=== PATIENT | male | born 1990 | race Caucasian/White ===

== ENCOUNTER 2018-04-19 18:07 | Emergency (ER) | payer OTHER ==
--- NOTE | 2018-04-19 19:03 | ER ---
Nurse's Notes [facility] Emergency Department Name: Deep Tang Age: 27 yrs Sex: Male : 1990 Arrival Date: 04/19/2018 Time: 18:11 Bed 14 Private MD: Diagnosis: Allergic contact dermatitis Presentation: 04/19 18:12 Presenting complaint: Patient states: "I got into some poison chaz or oak, it's all over aa5 my arms and now is in my right eye". Transition of care: patient was not received from another setting of care. Onset of symptoms was April 19, 2018. Risk Assessment: Do you want to hurt yourself or someone else? Patient reports no desire to harm self or others. Initial Sepsis Screen: Does the patient meet any 2 criteria? No. Patient's initial sepsis screen is negative. Does the patient have a suspected source of infection? No. Patient's initial sepsis screen is negative. Care prior to arrival: None. 18:12 Method Of Arrival: Ambulatory aa5 18:12 Acuity: JON 4 aa5 Historical: - Allergies: 18:14 Latex, Natural Rubber; aa5 18:14 Demerol; aa5 18:14 Codeine; aa5 18:14 Ceclor; aa5 18:14 fentanyl; aa5 18:14 Versed; aa5 - PMHx: 18:14 Hypertension; aa5 - PSHx: 18:14 Hernia repair; testicle repair; aa5 - Immunization history:: Adult Immunizations up to date. - Social history:: Smoking status: Patient uses tobacco products, chewing tobacco. - Ebola Screening: : No symptoms or risks identified at this time. Screenin:24 Abuse screen: Denies threats or abuse. Denies injuries from another. Nutritional aj1 screening: No deficits noted. Nutritional screening: No deficits noted. Tuberculosis screening: No symptoms or risk factors identified. 19:18 Fall Risk None identified. tl2 Assessment: 18:24 General: Appears in no apparent distress. comfortable, Behavior is calm, cooperative, aj1 appropriate for age. Pain: Denies pain. Neuro: Level of Consciousness is awake, alert, obeys commands. Cardiovascular: Patient's skin is warm and dry. Respiratory: Airway is patent Respiratory effort is even, unlabored, Respiratory pattern is regular, symmetrical. GI: No signs and/or symptoms were reported involving the gastrointestinal system. : No signs and/or symptoms were reported regarding the genitourinary system. EENT: No signs and/or symptoms were reported regarding the EENT system. Derm: Rash noted that is on right eye, right cheek, right arm and left arm. Musculoskeletal: No signs and/or symptoms reported regarding the musculoskeletal system. Circulation, motion, and sensation intact. 19:18 Reassessment: Patient appears in no apparent distress at this time. Patient and/or tl2 family updated on plan of care and expected duration. Pain level reassessed. Patient is alert, oriented x 3, equal unlabored respirations, skin warm/dry/pink. Pt verbalized understanding of discharge instructions, need for follow up and prescription usage. Vital Signs: 18:14 BP 143 / 85; Pulse 79; Resp 16 S; Temp 98.0(TE); Pulse Ox 97% on R/A; Weight 81.65 kg aa5 (R); Height 5 ft. 8 in. (172.72 cm) (R); Pain 0/10; 18:14 Body Mass Index 27.37 (81.65 kg, 172.72 cm) aa5 ED Course: 18:11 Patient arrived in ED. as 18:12 Triage completed. aa5 18:12 Arm band placed on. aa5 18:16 Dean Avila PA is PHCP. [facility] 18:16 Jesús Castaneda MD is Attending Physician. [facility] 18:21 Saritah Cueto, GABBY is Primary Nurse. aj1 18:24 Patient has correct armband on for positive identification. Bed in low position. Call aj1 light in reach. Side rails up X 1. 18:24 No provider procedures requiring assistance completed. aj1 19:18 Patient did not have IV access during this emergency room visit. tl2 Administered Medications: 19:00 Drug: Dexamethasone 10 mg Route: IM; Site: left deltoid; aj1 19:19 Follow up: Response: No adverse reaction tl2 Outcome: 19:03 Discharge ordered by . shira 19:18 Discharged to home ambulatory, with family. tl2 19:18 Condition: stable 19:18 Discharge instructions given to patient, Instructed on discharge instructions, follow up and referral plans. medication usage, Demonstrated understanding of instructions, follow-up care, medications, Prescriptions given X 2. 19:20 Patient left the ED. tl2 Signatures: Saritha Cueto RN RN aj1 Dean Avila PA PA jmm Martinez, Amelia as Yesi Shankar, RN RN aa5 Thi Roque RN RN tl2
[2018-04-19] MEDS ORDERED: DEXAMETHASONE 10 MG/ML VIAL ONE (19:04)
--- NOTE | 2018-04-19 19:04 | EDPHYS ---
Physician Documentation [facility] Name: Deep Tang Age: 27 yrs Sex: Male : 1990 Arrival Date: 04/19/2018 Time: 18:11 Bed 14 Private MD: ED Physician Jesús Castaneda HPI: 04/19 18:34 This 27 yrs old Male presents to ER via Ambulatory with complaints of Rash. jmm 18:34 The patient's rash thought to be caused by Dermatitis. The rash is located on the body jmm diffusely. The rash can be described as erythematous. Onset: The symptoms/episode began/occurred gradually, 1 day(s) ago. Associated signs and symptoms: Pertinent positives: itching, Pertinent negatives: difficulty breathing, swelling of lips, swelling of throat, swelling of tongue, vomiting, wheezing. Patient states that symptoms occurred after working in [employer] yesterday. . Historical: - Allergies: 18:14 Latex, Natural Rubber; aa5 18:14 Demerol; aa5 18:14 Codeine; aa5 18:14 Ceclor; aa5 18:14 fentanyl; aa5 18:14 Versed; aa5 - PMHx: 18:14 Hypertension; aa5 - PSHx: 18:14 Hernia repair; testicle repair; aa5 - Immunization history:: Adult Immunizations up to date. - Social history:: Smoking status: Patient uses tobacco products, chewing tobacco. - Ebola Screening: : No symptoms or risks identified at this time. ROS: 18:34 Constitutional: Negative for fever, chills, and weight loss, Eyes: Negative for injury, jmm pain, redness, and discharge, Cardiovascular: Negative for chest pain, palpitations, and edema, Respiratory: Negative for shortness of breath, cough, wheezing, and pleuritic chest pain. 18:34 Skin: Positive for rash. 18:34 All other systems are negative. Exam: 18:34 Chest/axilla: Normal chest wall appearance and motion. Cardiovascular: Regular rate jmm and rhythm. No edema appreciated Respiratory: Normal respirations, no respiratory distress appreciated Abdomen/GI: Non distended, soft Back: Normal ROM 18:34 Constitutional: The patient appears in no acute distress, alert, awake. 18:34 Head/face: mild erythema noted to the right cheek. 18:34 Eyes: Extraocular movements: intact throughout, Conjunctiva: normal. 18:34 Skin: mild erythema noted to the right and left forearm and the right cheek, non tender to palpation. no induration appreciated. . 18:34 Neuro: Orientation: is normal, Mentation: is normal, Memory: is normal, Gait: is steady. 18:34 Psych: Behavior/mood is pleasant, cooperative. Vital Signs: 18:14 BP 143 / 85; Pulse 79; Resp 16 S; Temp 98.0(TE); Pulse Ox 97% on R/A; Weight 81.65 kg aa5 (R); Height 5 ft. 8 in. (172.72 cm) (R); Pain 0/10; 18:14 Body Mass Index 27.37 (81.65 kg, 172.72 cm) aa5 MDM: 18:34 Patient medically screened. [facility] 19:01 Data reviewed: vital signs, nurses notes. Counseling: I had a detailed discussion with shira the patient and/or guardian regarding: the historical points, exam findings, and any diagnostic results supporting the discharge/admit diagnosis, the need for outpatient follow up, to return to the emergency department if symptoms worsen or persist or if there are any questions or concerns that arise at home. 19:01 ED course: Patient's symptoms appear to be consistent with contact dermatitis. Patient abiodun prescribed oral steroids. Advised to follow up with dermatology for further evaluation and other masterson return to the ED if symptoms worsen. Patient understood and agrees with the plan of care. . 19:01 Differential diagnosis: dermatitis, rash. [facility] Administered Medications: 19:00 Drug: Dexamethasone 10 mg Route: IM; Site: left deltoid; aj1 19:19 Follow up: Response: No adverse reaction tl2 Disposition: 18 19:03 Discharged to Home. Impression: Allergic contact dermatitis. - Condition is Stable. - Discharge Instructions: Poison Sia Dermatitis. - Prescriptions for Hydroxyzine HCl 25 mg Oral Tablet - take 1 tablet by ORAL route every 6 hours As needed; 30 tablet. Prednisone 20 mg Oral Tablet - take 3 tablets by ORAL route once daily for 12 days Please take 3 tabs by mouth daily for 3 days, then take 2 tabs by mouth daily for 3 days, then take 1 tab by mouth daily for 3 days, then take 1/2 tab by mouth daily for 3 days; 20 tablet. - Medication Reconciliation Form, Thank You Letter, Antibiotic Education, Prescription Opioid Use form. - Follow up: Private Physician; When: 2 - 3 days; Reason: Recheck today's complaints, Continuance of care, Re-evaluation by your physician. Addendum: 04/22/2018 20:39 Co-signature as Attending Physician, Jesús Castaneda MD. r n Signatures: Saritha Cuteo RN RN aj1 Dean Avila PA PA jmm Nieto, Roman, MD MD rn Calderon, Audri, RN RN aa5 Thi Roque RN RN tl2 Corrections: (The following items were deleted from the chart) 04/19 19:20 19:03 04/19/2018 19:03 Discharged to Home. Impression: Allergic contact dermatitis. tl2 Condition is Stable. Forms are Medication Reconciliation Form, Thank You Letter, Antibiotic Education, Prescription Opioid Use. Follow up: Private Physician; When: 2 - 3 days; Reason: Recheck today's complaints, Continuance of care, Re-evaluation by your physician. [facility]
[2018-04-19 19:28] VITALS: BP 143/85; TEMP 98; O2SAT 97
== END 2018-04-19 19:20 | disposition home or self-care (01) ==
LOC: ER 18:07
DX: L23.9 Allergic contact dermatitis, unspecified cause (principal); Z91.040 Latex allergy status; Z88.6 Allergy status to analgesic agent; Z88.8 Allergy status to other drugs, medicaments and biological substances
CPT/HCPCS: 96372; 99283; J1100